=== PATIENT | female | born 1940 | race Caucasian/White ===

== ENCOUNTER 2017-01-11 09:52 | Day surgery (SDC) | payer MEDICARE, BC ==
[~2017-01-11 09:52] MED LIST: AMBIEN CR12.5 MG PO; CARD120 PO; CRESTOR10 PO; DCN100 PO; EFFEXXR75 PO; KADIAN10 MG PO; KAPIDEX60 MG PO; LEXAPRO10 PO; MOBIC7.5 PO; PROTONIX PO; VITAMIN D1000 UNI1 PO; X25 PO; XARELTO20 MG PO; ZANTAC 150 PO; ZYRTEC ALLGY10 MG PO
[2017-04-14] MEDS ORDERED: NITROQUICK0.4 MG SL (14:47)
[2017-04-14] MEDS ORDERED: COREG3 PO (14:47)
[2017-04-14] MEDS ORDERED: ACET500CAP PO (14:47)
[2017-04-14] MEDS ORDERED: ZANTAC150 MG PO (14:48)
[2017-04-14] MEDS ORDERED: X25 PO (14:49)
== END 2017-01-11 23:59 | disposition home or self-care (01) ==
LOC: DMU 09:52
DX: Z80.0 Family history of malignant neoplasm of digestive organs (principal); I10 Essential (primary) hypertension; E78.00 Pure hypercholesterolemia, unspecified; I48.91 Unspecified atrial fibrillation; G89.29 Other chronic pain; K21.9 Gastro-esophageal reflux disease without esophagitis; F41.9 Anxiety disorder, unspecified; G47.33 Obstructive sleep apnea (adult) (pediatric); Z99.81 Dependence on supplemental oxygen; K44.9 Diaphragmatic hernia without obstruction or gangrene; Z53.9 Procedure and treatment not carried out, unspecified reason; Z88.5 Allergy status to narcotic agent; Z88.2 Allergy status to sulfonamides; Z88.8 Allergy status to other drugs, medicaments and biological substances

== ENCOUNTER 2017-01-12 12:34 | Day surgery (SDC) | payer MEDICARE, BC ==
--- NOTE | ~2017-01-12 | EGD ---
EGD REPORT [facility] [address] [address] NAME: MARLEY MONTOYA : [birth year] STATUS : [facility]#: [id number] AGE: 76 ADM/REG DATE : 01/12/17 MR#: [id number] REPORT SERV DATE: 01/12/17 DICTATED BY: LISANDRA WARE DATE: 01/12/17 REPORT STATUS : Draft [facility]ANSCRIBED BY: [facility] DATE: 01/12/17 Endoscopy Center Patient Name: Marley Montoya Date of : 1940 Attending MD: LISANDRA WARE MD Procedure Date No Time: 01/12/2017 Procedure: Upper GI endoscopy Indications: Epigastric abdominal pain, Heartburn, Suspected esophageal reflux, Nausea Referring MD: MOLLY GARCES MD Medicines: as per anesthesia Complications: No immediate complications. Procedure: Pre-Anesthesia Assessment: - ASA Grade Assessment: III - A patient with severe systemic disease. After obtaining informed consent, the endoscope was passed under direct vision. Throughout the procedure, the patient's blood pressure, pulse, and oxygen saturations were monitored continuously. The GIF H190 [id number] was introduced through the mouth, and advanced to the third part of duodenum. The upper GI endoscopy was accomplished without difficulty. The patient tolerated the procedure. Findings: A prior Darlene fundoplication was found at the gastroesophageal junction. This was characterized by healthy appearing mucosa. A medium-sized hiatus hernia was present. The examined duodenum was normal. Impression: - A Darlene fundoplication was found. - Hiatus hernia. - Normal examined duodenum. Recommendation: - Follow an antireflux regimen. - Continue present medications. Procedure Code(s): --- Professional --- 44456, Esophagogastroduodenoscopy, flexible, transoral; diagnostic, including collection of specimen(s) by brushing or washing, when performed (separate procedure) Diagnosis Code(s): --- Professional --- Z98.0, Intestinal bypass and anastomosis status K44.9, Diaphragmatic hernia without obstruction or EGD REPORT [place] [address] [address] [facility] [place] [address] NAME: MARLEY MONTOYA : [birth year] STATUS : [facility]#: [id number] AGE: 76 ADM/REG DATE : 01/12/17 MR#: [id number] REPORT SERV DATE: 01/12/17 DICTATED BY: LISANDRA WARE DATE: 01/12/17 REPORT STATUS : Draft TRANSCRIBED BY: [employer] DATE: 01/12/17 gangrene R10.13, Epigastric pain R12, Heartburn R11.0, Nausea CPT copyright 2013 [employer]. All rights reserved. The codes documented in this report are preliminary and upon senior biostatistician/group leader review may be revised to meet current compliance requirements. LISANDRA WARE MD 01/12/2017 2:22 PM This report has been signed electronically. Number of Addenda: 0 Note Initiated On: 01/12/2017 2:07 PM [facility] [address] [address]
--- NOTE | ~2017-01-12 | EGD ---
EGD REPORT [facility] [address] [address] NAME: MARLEY MONTOYA : [birth year] STATUS : REG [facility] PAT#: [id number] AGE: 76 ADM/REG DATE : 01/12/17 MR#: [id number] REPORT SERV DATE: 01/12/17 DICTATED BY: LISANDRA WARE DATE: 01/12/17 REPORT STATUS : Draft [facility]ANS[facility]IB[facility]: [facility] DATE: 01/12/17 Endoscopy Center Patient Name: Marley Montoya Date of : 1940 Attending MD: LISANDRA WARE MD Procedure Date No Time: 01/12/2017 Procedure: Colonoscopy Indications: FH of Colon Cancer - 1st degree relative, Change in bowel habits Referring MD: MOLLY GARCES MD Medicines: as per anesthesia Complications: No immediate complications. Procedure: Pre-Anesthesia Assessment: - ASA Grade Assessment: III - A patient with severe systemic disease. After I obtained informed consent, the scope was passed under direct vision. Throughout the procedure, the patient's blood pressure, pulse, and oxygen saturations were monitored continuously. The PCF [id number] was introduced through the anus and advanced to the cecum, identified by appendiceal orifice and ileocecal valve. The colonoscopy was performed without difficulty. The patient tolerated the procedure. The quality of the bowel preparation was fair. Findings: The perianal and digital rectal examinations were normal. A few small and large-mouthed diverticula were found in the sigmoid colon. Internal hemorrhoids were found during endoscopy and were mild. Impression: - Diverticulosis in the sigmoid colon. - Internal hemorrhoids. Recommendation: - Repeat colonoscopy in 5 years for surveillance. Procedure Code(s): --- Professional --- 40390, Colonoscopy, flexible, proximal to splenic flexure; diagnostic, with or without collection of specimen(s) by brushing or washing, with or without colon decompression (separate procedure) Diagnosis Code(s): --- Professional --- K64.8, Other hemorrhoids K57.30, Diverticulosis of large intestine without EGD REPORT [address] [address] NAME: MARLEY MONTOYA : [birth year] STATUS : REG [facility]#: [id number] AGE: 76 ADM/REG DATE : 01/12/17 MR#: [id number] REPORT SERV DATE: 01/12/17 DICTATED BY: LISANDRA WARE DATE: 01/12/17 REPORT STATUS : Draft TRANSCRIBED BY: [employer] DATE: 01/12/17 perforation or abscess without bleeding Z80.0, Family history of malignant neoplasm of digestive organs R19.4, Change in bowel habit CPT copyright 2013 [employer]. All rights reserved. The codes documented in this report are preliminary and upon hydroelectric plant structural engineer review may be revised to meet current compliance requirements. LISANDRA WARE MD 01/12/2017 2:25 PM This report has been signed electronically. Number of Addenda: 0 Note Initiated On: 01/12/2017 1:22 PM Scope Withdrawal Time 0 hours 0 minutes [address] [place] [id number]
[2017-04-14] MEDS ORDERED: COREG3 PO (14:47)
[2017-04-14] MEDS ORDERED: NITROQUICK0.4 MG SL (14:47)
[2017-04-14] MEDS ORDERED: ACET500CAP PO (14:47)
[2017-04-14] MEDS ORDERED: ZANTAC150 MG PO (14:48)
[2017-04-14] MEDS ORDERED: X25 PO (14:49)
== END 2017-01-12 23:59 | disposition home health service (06) ==
LOC: DMU 12:34
PROVIDERS: Internal Medicine Gastroenterology
PROC: 0DJD8ZZ Inspection of Lower Intestinal Tract, Via Natural or Artificial Opening Endoscopic (ICD-10-PCS; principal; 2017-01-12 13:30)
PROC: 0DJ08ZZ Inspection of Upper Intestinal Tract, Via Natural or Artificial Opening Endoscopic (ICD-10-PCS; 2017-01-12 13:30)
DX: K64.8 Other hemorrhoids (principal); K57.30 Diverticulosis of large intestine without perforation or abscess without bleeding; K44.9 Diaphragmatic hernia without obstruction or gangrene; I10 Essential (primary) hypertension; E78.00 Pure hypercholesterolemia, unspecified; I48.91 Unspecified atrial fibrillation; G47.33 Obstructive sleep apnea (adult) (pediatric); K21.9 Gastro-esophageal reflux disease without esophagitis; F41.9 Anxiety disorder, unspecified; Z99.81 Dependence on supplemental oxygen; Z98.0 Intestinal bypass and anastomosis status; Z80.0 Family history of malignant neoplasm of digestive organs; Z88.0 Allergy status to penicillin; Z88.2 Allergy status to sulfonamides; Z88.5 Allergy status to narcotic agent; Z88.8 Allergy status to other drugs, medicaments and biological substances

== ENCOUNTER 2017-02-23 07:34 | Day surgery (SDC) | payer MEDICARE, BC ==
[2017-02-17 15:41] LABS: BASOPHILS 0.2 %; BASOPHILS ABSOLUTE 0.02 10/3/uL (0.0-0.16); EOSINOPHILS 1.5 %; EOSINOPHILS ABSOLUTE 0.13 10/3/uL (0.0-0.53); HEMATOCRIT 42.9 % (36.0-48.0); HEMOGLOBIN 14.3 g/dL (12.0-16.0); IMMATURE GRANULOCYTES 0.1 %; IMMATURE GRANULOCYTES ABSOLUTE 0.01 10/3/uL (0.0-0.11); LYMPHOCYTES 33.4 %; LYMPHOCYTES ABSOLUTE 2.82 10/3/uL (0.67-4.30); MEAN CORPUS HGB CONC 33.3 g/dL (32.0-36.0); MEAN CORPUSCULAR HEMOGLOB 29.4 pg (26.0-34.0); MEAN CORPUSCULAR VOLUME 88.1 fL (80-100); MEAN PLATELET VOLUME 11.2 fL (9.2-13.0); MONOCYTES 5.4 %; MONOCYTES ABSOLUTE 0.46 10/3/uL (0.21-1.20); NEUTROPHILS 59.4 %; NEUTROPHILS ABSOLUTE 5.01 10/3/uL (2.02-8.40); PLATELET COUNT 216 10/3/uL (150-400); RBC DISTRIBUTION WIDTH 13.1 % (12.0-16.0); RED CELL COUNT 4.87 10/6/uL (4.0-5.6); WHITE BLOOD CELLS 8.5 10/3/uL (4.5-10.5)
[2017-02-17 15:42] LABS: MANUAL DIFF NO %
[2017-02-17 16:03] LABS: ALBUMIN 3.4 G/DL (3.5-5.0); ALKALINE PHOSPHATASE 78 U/L (45-117); CALCIUM, SERUM 9.1 MG/DL (8.5-10.4); CHLORIDE, SERUM 106 MMOL/L (96-112); CO2 (CARBON DIOXIDE) 30 MMOL/L (24-34); CREATININE 0.62 MG/DL (0.55-1.02); GFR AFRICAN AMERICAN 103 ML/MIN (>=60); GFR NON AFRICAN AMERICAN 89 ML/MIN (>=60); POTASSIUM, SERUM 3.9 MMOL/L (3.5-5.3); SGOT(AST) 25 U/L (5-40); SGPT(ALT) 35 U/L (5-65); SODIUM, SERUM 143 MMOL/L (135-148); TOTAL BILIRUBIN 0.7 MG/DL (0-1.2); TOTAL PROTEIN 6.9 G/DL (6.0-8.5)
[2017-02-17 16:05] LABS: BUN (BLOOD UREA NITROGEN) 12 MG/DL (6-23); GLOBULIN 3.5 G/DL (2.5-4.1); GLUCOSE, SERUM 110 MG/DL (60-99)
--- NOTE | ~2017-02-23 | OP ---
Record Of Operation [facility] [address] [place]. [address] NAME: MARLEY MONTOYA : [birth year] STATUS : [facility]#: [id number] AGE: 76 ADM/REG DATE : 02/23/17 MR#: [id number] REPORT SERV DATE: 02/28/17 DICTATED BY: DIDIER HUSAIN DATE: 02/28/17 REPORT STATUS : Draft TRANSCRIBED BY: [employer] DATE: 02/28/17 DATE OF PROCEDURE: 02/23/2017 PREOPERATIVE DIAGNOSIS: Symptomatic cholelithiasis. POSTOPERATIVE DIAGNOSIS: Symptomatic cholelithiasis. OPERATION PERFORMED: Laparoscopic cholecystectomy. ANESTHESIA: General. ESTIMATED BLOOD LOSS: Less than 10 mL. IV FLUIDS: Adequate. INDICATION FOR PROCEDURE: Ms. Montoya is a 76-year-old, white female, who has had a known small hiatal hernia. She also has symptomatic cholelithiasis. Given the symptoms, we would recommend cholecystectomy. Risks and benefits of the procedure were discussed in detail. DESCRIPTION OF OPERATION: After appropriate sedation, the patient was prepped and draped in proper sterile fashion. Skin and subcutaneous tissues around the umbilicus were infiltrated with local anesthesia. A vertical incision was made at the umbilical skin. She had a small umbilical hernia, which opened up slightly, and a 10-mm trocar was placed in the abdomen. The abdomen was insufflated to 15 mmHg. We then placed two right lateral 5 mm trocars away from midline adhesions. We carefully dissected the midline adhesions down. We then placed a more midline 10 mm trocar under direct visualization. The gallbladder was visualized. It was grasped and taken cephalad. Any adhesions too were carefully dissected away. It was somewhat thick-walled. We incised the peritoneum on both sides of the gallbladder to help with mobilization. We dissected out the cystic artery and cystic duct as well as posterior of the gallbladder. We were therefore able to demonstrate the critical view of safety. Cystic artery and duct were ligated between hemoclips. The gallbladder was removed from gallbladder fossa using hook cautery and brought out through the subxiphoid trocar site. We placed a trocar and visualized the right upper quadrant. No evidence of bleeding or bile leak. We visualized our clips, which were intact. We removed our trocars under direct visualization. There was no bleeding from the abdominal wall. The abdomen was then desufflated. The fascia at the umbilical trocar site was then closed using 0 Vicryl suture. Skin was closed using interrupted running 4-0 Monocryl suture. Steri-Strips and dressings were then placed. The patient was taken to recovery room in satisfactory condition. CÉSAR/LALITHA Didier Husain M.D. Record Of [address] [address] NAME: MARLEY MONTOYA : [birth year] STATUS : [facility] PAT#: [id number] AGE: 76 ADM/REG DATE : 02/23/17 MR#: [id number] REPORT SERV DATE: 02/28/17 DICTATED BY: DIDIER HUSAIN DATE: 02/28/17 REPORT STATUS : Draft TRANSCRIBED BY: LALITHA DATE: 02/28/17 / [id number] CC: January Carlos M.D.
[2017-04-14] MEDS ORDERED: ACET500CAP PO (14:47)
[2017-04-14] MEDS ORDERED: COREG3 PO (14:47)
[2017-04-14] MEDS ORDERED: NITROQUICK0.4 MG SL (14:47)
[2017-04-14] MEDS ORDERED: ZANTAC150 MG PO (14:48)
[2017-04-14] MEDS ORDERED: X25 PO (14:49)
== END 2017-02-23 13:52 | disposition home or self-care (01) ==
LOC: SDC 07:34
PROVIDERS: Specialist
PROC: 0FT44ZZ Resection of Gallbladder, Percutaneous Endoscopic Approach (ICD-10-PCS; principal; 2017-02-23 08:45)
DX: K81.1 Chronic cholecystitis (principal); I48.91 Unspecified atrial fibrillation; I10 Essential (primary) hypertension; G47.33 Obstructive sleep apnea (adult) (pediatric); E78.5 Hyperlipidemia, unspecified; Z88.0 Allergy status to penicillin; Z88.5 Allergy status to narcotic agent; Z88.2 Allergy status to sulfonamides; Z88.8 Allergy status to other drugs, medicaments and biological substances; Z79.899 Other long term (current) drug therapy; Z79.891 Long term (current) use of opiate analgesic; Z99.89 Dependence on other enabling machines and devices; Z90.710 Acquired absence of both cervix and uterus; Z90.49 Acquired absence of other specified parts of digestive tract; Z98.890 Other specified postprocedural states
CPT/HCPCS: 80053; 85025; 88304; 93005; A9270-GY; J0690; J1170; J2405; J2710; J3010